=== PATIENT | female | born 1965 | race Caucasian/White ===

== ENCOUNTER → 2018-04-13 | Outpatient (CLI) | payer OTHER ==
[~2018-04-13] MED LIST: ACETAMINOPHEN-1 EAC1 PO; ASPIRIN325 PO; BUTALB-APAP-CA1 EACH PO; CARDIZEM CD180 MG PO; CIPRO500 MG PO; CYMBALTA60 MG PO; FLEXERIL PO; HYDROCODONE-AP1 EAC6 PO; LASIX 20 MG TAB20 MG PO; LEVOTHYROXINE0.05 MG PO; LIPITOR 20 MG T20 M1 PO; MAGIC MOUTHWASH SWISH&SPIT; NORCO 5-325 TA1 EAC1 PO; NORTRIPTYLINE H10 M1 PO; ONDANSETRON HCL4 M2 PO; OXYCONTIN15 MG PO; PHENAZOPYRIDIN200 M2 PO; PLAVIX 75 MG TA75 M1 PO; POTASSIUM20 PO; PREDNISONE 20 M20 M1 PO; PROTONIX40 M1 PO; RANEXA500 MG PO; TOPAMAX50 MG PO; XANAX1 MG PO; XYZAL5 MG PO; ZANAFLEX4 MG PO
== END ==
LOC: M.RAD 16:15
DX: R07.1 Chest pain on breathing (principal)

== ENCOUNTER → 2019-02-01 | Outpatient (CLI) | payer OTHER | LOC: M.RAD 07:12 → M.MRI 07:12 | DX: Z12.31 Encounter for screening mammogram for malignant neoplasm of breast (principal) ==

== ENCOUNTER → 2019-03-13 | Outpatient (CLI) | payer OTHER ==
--- NOTE | 2019-03-20 16:31 | EEG ---
[address] [address] EEG STUDY REPORT Name: GEOFFREY TRUJILLO Room: [facility]#: [id number] Admission: 03/13/19 Attend Phys: Kb Braswell MD Discharge: Date of : 65 Report #: [id number] THIS REPORT FOR: //name// CC: Arsh Rivera DATE OF SERVICE: 03/13/2019 This patient is being evaluated for the possibility of seizure. EEG was done by placing the electrodes by standard 10-20 system of electrode placement. Both referential and sequential montages were used for recording. Background activity in this patient's EEG is about 9 Hz and 30 microvolts. Photic stimulation was unremarkable. The patient became drowsy and that is associated with bilateral slowing and vertex sharp waves. Throughout the record, no active epileptiform activity was noticed. IMPRESSION: This patient's EEG does not demonstrate any clear-cut epileptiform activity. It might be mentioned that the EEG can be normal in a patient with seizure disorder. Therefore, clinical correlation and further workup as clinically indicated can be done. Thank you very much for this referral. <ELECTRONICALLY SIGNED> By: Abhi Queen MD 03/20/19 1631 1408 1425Abhi Queen MD /nt
== END ==
LOC: M.CRD 02-13 13:00 → M.CT 02-13 13:00 → M.CRD 13:41 → M.CT 14:00
DX: R56.9 Unspecified convulsions (principal); F41.9 Anxiety disorder, unspecified; I25.10 Atherosclerotic heart disease of native coronary artery without angina pectoris; F32.9 Major depressive disorder, single episode, unspecified; K21.9 Gastro-esophageal reflux disease without esophagitis; E78.5 Hyperlipidemia, unspecified; E03.9 Hypothyroidism, unspecified; I10 Essential (primary) hypertension

== ENCOUNTER 2019-05-30 19:42 | Emergency (ER) | payer OTHER ==
[~2019-05-30] VITALS: Ht 157.5 cm; Wt 61.2 kg
[2019-05-30 20:28] LABS: ABSOLUTE EOSINOPHILS 0.1 thou/uL (0.0-0.7); ABSOLUTE LYMPHOCYTES 1.6 thou/uL (0.8-5.3); ABSOLUTE MONOCYTES 0.5 thou/uL (0.0-1.2); BASOPHILS 0.2 %; EOSINOPHILS 1.7 %; HEMATOCRIT 33.9 % (37.0-47.0); HEMOGLOBIN 11.4 gm/dL (12.0-15.0); LYMPHOCYTES 25.9 %; MCHC 33.7 g/dL (28.0-37.0); MCV 95.2 fL (80.0-100.0); MONOCYTES 7.7 %; MPV 8.1 fl. (7.2-11.1); NUCLEATED RBCS 0 /100WBC; PLATELET COUNT* 164 thou/uL (150-400); POLYS 64.5 %; RBC 3.56 mil/uL (4.20-5.00); RDW-CV 13.2 % (10.5-14.5); WBC 6.2 thou/uL (4.0-11.0)
[2019-05-30 20:40] LABS: ANION GAP 6 mmol/L (7-16); BUN 8 mg/dL (7-18); CALCIUM 8.5 mg/dL (8.5-10.1); CHLORIDE 105 mmol/L (98-107); CO2 33 mmol/L (21-32); CREATININE 0.9 mg/dL (0.6-1.3); GLUCOSE 85 mg/dL (70-99); POTASSIUM 3.6 mmol/L (3.5-5.1); SODIUM 144 mmol/L (136-145)
[2019-05-30 20:41] LABS: INR 1.1
[2019-05-30 20:50] LABS: ALBUMIN 2.9 g/dL (3.4-5.0); ALKALINE PHOSPHATASE 149 U/L (46-116); LIPASE 87 U/L (73-393); NT-PRO BRAIN NAT PEPTIDE 135 pg/mL (<300); SGOT 28 U/L (15-37); SGPT 27 U/L (30-65); TOTAL BILIRUBIN 0.3 mg/dL (<0.1-1.0); TOTAL PROTEIN 6.6 g/dL (6.4-8.2); TROPONIN-I LEVEL <0.06 ng/mL (<0.06)
[2019-05-30 21:54] LABS: URINE BILIRUBIN NEGATIVE (Negative); URINE BLOOD NEGATIVE (Negative); URINE CLARITY CLEAR; URINE COLOR YELLOW; URINE GLUCOSE-RANDOM NEGATIVE (Negative); URINE KETONES NEGATIVE (Negative); URINE LEUKOCYTES-REFLEX 1+ (Negative); URINE NITRITE-REFLEX NEGATIVE (Negative); URINE PROTEIN NEGATIVE (Negative); URINE UROBILINOGEN 0.2 E.U./dl (0.2-1.0)
[2019-05-30 22:00] LABS: HYALINE CASTS >10 Many /LPF (None Seen)
[2019-05-30 22:01] LABS: AMP/METHAMP Negative (Negative); BARBITURATES Negative (Negative); BENZODIAZEPINES POSITIVE (Negative); COCAINE Negative (Negative); METHADONE Negative (Negative); MUCUS None Seen strn/LPF (None Seen); OPIATES POSITIVE (Negative); PCP Negative (Negative); SQUAMOUS 4-10 Moderate /LPF (0-3); THC Negative (Negative); URINE WBC-REFLEX 6-15 Few /HPF (0-5)
[2019-05-30 22:02] LABS: BACTERIA-REFLEX >30 Many /HPF (None Seen); CRYSTALS None Seen /LPF (None Seen); URINE RBC None Seen /HPF (0-2)
[2019-05-30] MEDS ORDERED: MACROBID 100 M100 M1 PO (23:14)
[2019-05-30 23:23] VITALS: BP 110/61
--- NOTE | 2019-05-31 12:35 | EKG ---
[place] [address] ELECTROCARDIOGRAM REPORT Name: GEOFFREY TRUJILLO [id number] Admission: 05/30/19 Attend Phys: Discharge: 05/30/19 Date of : 65 Report #: [id number] THIS REPORT FOR: //name// [facility] ED Test Date: 2019-05-30 Test Time: 19:59:33 Pat Name: GEOFFREY TRUJILLO Department: Room: Gender: F Multimedia Specialist: OR : 1965 Requested By: Marine Paulino Order Number: [id number] MD: Angel Garcia Measurements Intervals [place] Rate: 73 P: 49 OK: 166 QRS: -10 QRSD: 88 T: 34 QT: 540 QTc: 596 Interpretive Statements Sinus rhythm Borderline T abnormalities, anterior leads Prolonged QT interval Compared to ECG 05/27/2017 14:20:57 Prolonged QT interval now present T-wave abnormality still present Electronically Signed On 05-31-2019 12:35:27 CDT by Angel Garcia [email or web address] <ELECTRONICALLY SIGNED> By: Angel Garcia MD, [facility] 05/31/19 1235 58 58 Angel Garcia MD, FACC /EPI
== END 2019-05-30 23:25 | disposition home or self-care (01) ==
LOC: M.ERS 19:42
PROVIDERS: Emergency Medicine
DX: I95.1 Orthostatic hypotension (principal); N39.0 Urinary tract infection, site not specified; I10 Essential (primary) hypertension; F41.9 Anxiety disorder, unspecified; Z87.891 Personal history of nicotine dependence; Z88.1 Allergy status to other antibiotic agents; Z91.010 Allergy to peanuts; Z88.0 Allergy status to penicillin; Z90.710 Acquired absence of both cervix and uterus; Z90.49 Acquired absence of other specified parts of digestive tract; Z98.890 Other specified postprocedural states

== ENCOUNTER 2021-11-21 20:33 | Inpatient (IN) | payer OTHER ==
[~2021-11-21] VITALS: Ht 157.5 cm; Wt 63.5 kg
--- NOTE | ~2021-11-21 | EEG ---
[address] [address] EEG STUDY REPORT Name: GEOFFREY TRUJILLO Room: [address] IN M.R.#: [id number] Admission: 11/22/21 Attend Phys: Estrella Jha Discharge: Date of : 65 Report #: [id number] THIS REPORT FOR: cc: FAM - No family physician/PCP FAM - No family physician/PCP Abhi Pham MD ~ DATE OF SERVICE: 11/22/2021 This patient is being evaluated for the possibility of seizure. EEG was done by placing the electrodes by standard 10-20 system of electrode placement. Both referential and sequential montages were used to record this EEG. Background activity in this patient's EEG goes about 9 Hz and 30 microvolt and large percentage of this EEG activity is much slower and is associated with some vertex sharp waves and K complexes. Photic stimulation is unremarkable. Throughout the record, no active epileptiform activity was noticed. IMPRESSION: This patient's EEG does not demonstrate any clear-cut epileptiform activity. It is slow and that is a nonspecific finding, which can occur with encephalopathy, effect of psychotropic medication, dementia, etc. Clinical correlation is recommended. By: 1352 1437Parsondra Pham MD /nt
--- NOTE | ~2021-11-21 | CON ---
[address] [address] CONSULTATION Name: GEOFFREY TRUJILLO Room: [address] ADM IN M.R.#: [id number] Admission: 11/22/21 Attend Phys: Estrella Jha Discharge: Date of : 65 Report #: [id number] THIS REPORT FOR: cc: GUILLERMO - No family physician/PCP FAM - No family physician/PCP Abhi Pham MD ~ DATE OF CONSULTATION: 11/22/2021 HISTORY OF PRESENT ILLNESS: This is a 56-year-old female patient who was evaluated by me for the possibility of seizure. The history is very poorly defined. I reviewed all the records and she says that she started having seizures about 1 year ago. She says she sees a neurologist, but she does not know the name. She indicates she is on Vimpat. She is not on Vimpat here, so I do not know what the dosage is she is on. She says she was on 2 other medications before and she does not know the name of those medications, but those medications were stopped because they were ineffective. Her description of the seizure is poor. Sometimes she says she lose the consciousness and sometimes she says she does not. We will try to reach some patient's family to clarify the situation. REVIEW OF SYSTEMS: Indicated that she does have some bradycardia. She has a history of seizure, but does not know what workup has been done and where it has been done. At this time, she was just passed out. I do not know what her baseline is and how far she is from her baseline. Review of systems is also positive for cholecystectomy, hysterectomy, back surgery. She apparently has a pain pump implanted for the chronic back pain. She does take Xanax. She does become anxious. She also takes baclofen. She indicates that she is on disability and that is not because of seizure and that is because of the back pain. This was the relevant 14-point review of system in this patient. PAST MEDICAL HISTORY: Positive for cholecystectomy. FAMILY HISTORY: Unobtainable. SOCIAL HISTORY: She said she is disabled and she does not drink alcohol. PHYSICAL EXAMINATION: NEUROLOGIC: The patient's examination indicates her affect is somewhat different. She talks. She was able to tell me what month it is and what hospital she is in for some time, but I do not know what her baseline is. Cranial nerve examination 2-12 looks mostly unremarkable. She moved all 4 extremities, it took her some time, but she was able to tell me the position sense. Reflexes appear to be present. Plantar is mute. She does not appear to be ataxic. I could not look at the fundus. Her hearing and vision looks adequate. She has no edema, cyanosis or jaundice. She [place] [address] CONSULTATION Name: GEOFFREY TRUJILLO Room: [address] IN ..#: [id number] Admission: 11/22/21 Attend Phys: Estrella Jha Discharge: Date of : 65 Report #: [id number] features. CARDIAC: Unremarkable. No respiratory difficulty was noticed. VITAL SIGNS: Blood pressure is 127/58, respirations 16, pulse is 45, it has gone as low as 38. She does not have any evidence of vascular insufficiency in the lower extremities. IMPRESSION: The history is pretty unusual for the seizure. She apparently has been tried on 3 anticonvulsants and presently is on Vimpat. Because of bradycardia, I do not think Vimpat is a good medication for her because itself can give rise to the blocks and that one of the side effect from that is. I will try to find out from her neurologist what workup was done and what medication she has already been tried. We need to try some alternative medication, but only after confirming that they were epileptic seizure and not nonepileptic event. Bradycardia makes it even more problematic to figure out the diagnosis because she can have seizure secondary to hypoperfusion of the brain, secondary to bradycardia. I discussed all of it with the patient. I reviewed the records and I spent more than 50 minutes of time taking care of this patient today and majority was spent counseling and coordinating. By: 1530 19Abhi Pham MD /galo
[2021-11-21 20:33] VITALS: BP 143/70
[~2021-11-21 20:33] MED LIST changes: +MACROBID 100 M100 M1 PO
[2021-11-21] MEDS ORDERED: DILAUDID1 MG/1 M1 (20:47)
[2021-11-21] MEDS ORDERED: GABLOFEN50 MCG/1 M (20:48)
[2021-11-21] MEDS ORDERED: KETAMINE (20:48)
[2021-11-21] MEDS ORDERED: BUPIVACAIN (20:49)
[2021-11-21] MEDS ORDERED: [UNRECOGNIZED DRUG - OTHER] (20:50)
[2021-11-21 21:23] LABS: ABSOLUTE EOSINOPHILS 0.1 thou/uL (0.0-0.7); ABSOLUTE LYMPHOCYTES 1.4 thou/uL (0.8-5.3); ABSOLUTE MONOCYTES 0.1 thou/uL (0.0-1.2); ABSOLUTE NEUTROPHILS 3.1 thou/uL (1.6-8.1); BASOPHILS 0.3 %; EOSINOPHILS 1.6 %; HEMATOCRIT 38.7 % (37.0-47.0); HEMOGLOBIN 12.6 gm/dL (12.0-15.0); LYMPHOCYTES 29.6 %; MCH 31.8 pg (26.0-34.0); MCHC 32.7 g/dL (28.0-37.0); MCV 97.4 fL (80.0-100.0); MONOCYTES 3.1 %; MPV 8.8 fl. (7.2-11.1); NUCLEATED RBCS 0 /100WBC; PLATELET COUNT* 157 thou/uL (150-400); POLYS 65.4 %; RBC 3.97 mil/uL (4.20-5.00); RDW-CV 15.7 % (10.5-14.5); WBC 4.7 thou/uL (4.0-11.0)
[2021-11-21 21:41] LABS: CALCIUM 9.9 mg/dL (8.5-10.1); CREATININE 0.9 mg/dL (0.6-1.3); POTASSIUM 3.9 mmol/L (3.5-5.1)
[2021-11-21 21:45] LABS: ALBUMIN 3.1 g/dL (3.4-5.0); TOTAL BILIRUBIN 0.3 mg/dL (<0.1-1.0); TOTAL PROTEIN 7.5 g/dL (6.4-8.2)
[2021-11-22] VITALS (7 sets, daily range): BP systolic 100–127; BP diastolic 43–76
[2021-11-22 00:36] LABS: INFLUENZA A ANTIGEN Negative (Negative); INFLUENZA B ANTIGEN Negative (Negative)
[2021-11-22 01:19] LABS: BE 3.9 mmol/L (-2 to +3); PO2 96.6 mmHg (75.0-100.0); pH 7.362 (7.340-7.450)
[2021-11-22 01:21] LABS: PCO2 53.9 mmHg (35.0-45.0)
[2021-11-22 01:26] LABS: URINE BILIRUBIN NEGATIVE (Negative); URINE BLOOD NEGATIVE (Negative); URINE COLOR YELLOW; URINE GLUCOSE-RANDOM NEGATIVE (Negative); URINE KETONES NEGATIVE (Negative); URINE LEUKOCYTES-REFLEX TRACE (Negative); URINE NITRITE-REFLEX NEGATIVE (Negative); URINE PROTEIN NEGATIVE (Negative); URINE SPECIFIC GRAVITY 1.025 (1.005-1.030); URINE UROBILINOGEN 0.2 E.U./dl (0.2-1.0)
[2021-11-22 01:27] LABS: URINE CLARITY SL HAZY
[2021-11-22 02:05] LABS: AMP/METHAMP Negative (Negative); BARBITURATES Negative (Negative); BENZODIAZEPINES POSITIVE (Negative); COCAINE Negative (Negative); METHADONE Negative (Negative); OPIATES POSITIVE (Negative); PCP Negative (Negative); THC Negative (Negative)
[2021-11-22 02:10] LABS: AMORPHOUS URATES Moderate /LPF (None Seen); BACTERIA-REFLEX >30 Many /HPF (None Seen); CASTS None Seen /LPF (None Seen); MUCUS 4-6 Moderate strn/LPF (None Seen); SQUAMOUS 0-3 Few /LPF (0-3); TRANSITIONAL EPITHEL CELL 4-10 Moderate /LPF (None Seen); URINE RBC 3-10 Few /HPF (0-2); URINE WBC-REFLEX 6-15 Few /HPF (0-5); WBC CLUMPS Few (None Seen)
[2021-11-22 09:24] LABS: BE 5.2 mmol/L (-2 to +3); PO2 78.2 mmHg (75.0-100.0); pH 7.357 (7.340-7.450)
[2021-11-22 09:27] LABS: PCO2 58.7 mmHg (35.0-45.0)
--- NOTE | 2021-11-22 10:09 | EKG ---
[place] [address] ELECTROCARDIOGRAM REPORT Name: GEOFFREY TRUJILLO Room: [address] ADM IN M.R.#: [id number] Admission: 11/22/21 Attend Phys: Sin Padilla Discharge: Date of : 65 Date of Service: 11/21/212034 Report #: [id number] THIS REPORT FOR: //name// [facility] ED Test Date: 2021-11-21 Test Time: 20:35:21 Pat Name: GEOFFREY TRUJILLO Department: Room: [address] Gender: F World Designer: : 1965 Requested By: Rashmi Chu Order Number: [id number] MD: Kb Sanchez Measurements Intervals [place] Rate: 46 P: 37 WI: 145 QRS: -9 QRSD: 126 T: 33 QT: 482 QTc: 422 Interpretive Statements Sinus bradycardia Nonspecific intraventricular conduction delay Compared to ECG 05/30/2019 19:59:33 Intraventricular conduction delay now present Sinus rhythm no longer present T-wave abnormality no longer present Prolonged QT interval no longer present Electronically Signed On 11-22-2021 10:09:41 YIELD CLERK by Kb Sanchez [email or web address] <ELECTRONICALLY SIGNED> By: Kb Sanchez MD, FACC 11/22/21 1009 34 34 Kb Sanchez MD, FAC /EPI
--- NOTE | 2021-11-22 10:11 | EKG ---
[place] [address] ELECTROCARDIOGRAM REPORT Name: GEOFFREY TRUJILLO Room: [address] ADM IN M.R.#: [id number] Admission: 11/22/21 Attend Phys: Sin Padilla Discharge: Date of : 65 Date of Service: 11/22/21 0104 Report #: [id number] THIS REPORT FOR: //name// [facility] ED Test Date: 2021-11-22 Test Time: 01:04:46 Pat Name: GEOFFREY TRUJILLO Department: Room: [address] Gender: F Microsoft Architect: : 1965 Requested By: Rashmi Chu Order Number: [id number] MD: Kb Sanchez Measurements Intervals [place] Rate: 41 P: 54 NM: 182 QRS: -3 QRSD: 114 T: 33 QT: 519 QTc: 429 Interpretive Statements Sinus bradycardia Borderline intraventricular conduction delay Compared to ECG 11/21/2021 20:35:21 No significant changes Electronically Signed On 11-22-2021 10:11:20 PLASTIC BLOCK BOILER RELINER by Kb Sanchez [email or web address] <ELECTRONICALLY SIGNED> By: Kb Sanchez MD, [facility] 11/22/21 1011 0104 0104 Kb Sanchez MD, [facility] /EPI
[2021-11-22] MEDS ORDERED: KEPPRA750 MG PO (16:32)
[2021-11-22] MEDS ORDERED: ZONEGRAN100 MG PO (16:33)
[2021-11-22] MEDS ORDERED: VIMPAT150 MG PO (16:35)
[2021-11-22] MEDS ORDERED: OXYCONTIN10 M1 PO (16:35)
[2021-11-22] MEDS ORDERED: ASA81BEC PO (16:39)
[2021-11-22] MEDS ORDERED: XANAX 0.5 MG0.5 M1 PO (16:39)
[2021-11-23] VITALS: BP 128/63; BP 172/71
[2021-11-23 04:00] VITALS: BP 117/64
[2021-11-23 04:21] LABS: HEMATOCRIT 29.4 % (37.0-47.0); MCH 32.4 pg (26.0-34.0); MCHC 33.6 g/dL (28.0-37.0); MCV 96.3 fL (80.0-100.0); MPV 8.8 fl. (7.2-11.1); RBC 3.06 mil/uL (4.20-5.00); RDW-CV 15.7 % (10.5-14.5); WBC 4.2 thou/uL (4.0-11.0)
[2021-11-23 04:45] LABS: ALBUMIN 2.4 g/dL (3.4-5.0); ALKALINE PHOSPHATASE 142 U/L (46-116); ANION GAP 5 mmol/L (7-16); BUN 12 mg/dL (7-18); CALCIUM 8.4 mg/dL (8.5-10.1); CHLORIDE 110 mmol/L (98-107); CHOLESTEROL 81 mg/dL (<200); CO2 32 mmol/L (21-32); CREATININE 0.7 mg/dL (0.6-1.3); GLUCOSE 70 mg/dL (70-99); HDL CHOLESTEROL 55 mg/dL (>40); LDL CHOLESTEROL 18 mg/dL (<100); MAGNESIUM 1.4 mg/dL (1.8-2.4); POTASSIUM 3.5 mmol/L (3.5-5.1); SGOT 28 U/L (15-37); SGPT 35 U/L (30-65); SODIUM 147 mmol/L (136-145); TC:HDL 1.5 Ratio (Not establshd); TOTAL BILIRUBIN 0.2 mg/dL (<0.1-1.0); TOTAL PROTEIN 5.6 g/dL (6.4-8.2); TRIGLYCERIDE 41 mg/dL (<150); VLDL 8 mg/dL (<40)
[2021-11-23 04:48] LABS: SERUM ASSESSMENT CLEAR
[2021-11-23 06:05] LABS: HEMOGLOBIN 9.9 gm/dL (12.0-15.0)
[2021-11-23 07:07] LABS: GLYCOHEMOGLOBIN (HGB A1C) 5.3 % (4.8-5.6)
[2021-11-23 08:01] VITALS: BP 133/65
--- NOTE | 2021-11-23 11:54 | CON ---
[facility] [address] [place] [address] CONSULTATION Name: GEOFFREY TRUJILLO Room: [address] ADM IN M.R.#: [id number] Admission: 11/22/21 Attend Phys: Estrella Jha Discharge: Date of : 65 Report #: [id number] THIS REPORT FOR: cc: GUILLERMO - No family physician/PCP FAM - No family physician/PCP Kb Sanchez MD [facility] ~ cc: Dr. Rodrigeuz DATE OF CONSULTATION: 11/22/2021 CARDIOLOGY CONSULTATION HISTORY OF PRESENT ILLNESS: The patient is a 56-year-old white female who I was asked to see in the hospital today after she was noted to be bradycardic. The history is obtained from the patient. Unfortunately, there are no old records. There are no family members available. The patient is currently somewhat confused. She apparently had a coronary stent placed in [place], [place] in 2008 in her circumflex artery. She had another coronary stent placed in 2009 in her right coronary artery in [employer]. She has done well since that time. She has not had a stress test for years. She is not very active. She notes when she had the stent put in her heart she was having chest pain. Recently, she has had no significant chest pain, shortness of breath, palpitations. She does have a history of seizures that started about a year ago. She sees a neurologist and has been on seizure medications. Her last seizure was about 2 weeks ago. She was brought to the Emergency Room last night by paramedics. Apparently, the is out of town visiting his mother. When he had not heard from his , he called the police who checked on his . When EMS arrived to the home, she was on the ground in the bathroom. She apparently did strike her head. She felt somewhat confused. She was noted to be bradycardic. She was brought to the hospital last night and admitted for further evaluation and treatment. She denies recent vomiting. She has had a cough. No fever, no diarrhea, no bleeding. She denied any palpitations. PAST MEDICAL HISTORY: She had cholecystectomy, hysterectomy, seizure disorder, back surgery. She apparently has a pain pump implanted for chronic back pain. ALLERGIES: SHE HAS A PREVIOUS INTOLERANCE TO BETA BLOCKERS, LISINOPRIL, PENICILLIN. CURRENT MEDICATIONS: Consists of aspirin, Xanax, Lipitor, Lasix, oxycodone, baclofen, ketamine. She is no longer on Plavix. FAMILY HISTORY: Cannot be obtained [place] [address] CONSULTATION Name: GEOFFREY TRUJILLO Room: [address] IN [facility].#: [id number] Admission: 11/22/21 Attend Phys: Estrella Jha Discharge: Date of : 65 Report #: [id number] SOCIAL HISTORY: She is . She and her live here in [place]. They moved here from [employer] in 2014. She does not work outside the home. She quit smoking in 2007. No alcohol abuse. REVIEW OF SYSTEMS: No history of stroke, asthma, liver disease, kidney disease, cancer, psychiatric illness, chronic skin condition. PHYSICAL EXAMINATION: GENERAL: Revealed a middle-aged female, lying in bed. She appeared in no distress. She is very slow moving. HEENT: She was anicteric. Conjunctivae pink. Mucous membranes moist. NECK: Veins do not appear distended. No carotid bruits. CHEST: Clear to auscultation. HEART: Regular rate and rhythm. ABDOMEN: Soft. EXTREMITIES: Had no edema. Dorsalis pedis pulse could be palpated. SKIN: Cool and dry. NEUROLOGIC: She is moving all extremities. She was oriented to place, although she thought this was December. VITAL SIGNS: She had a blood pressure of 110/60, pulse is 50. IMAGING: Her ECG on admission last night showed a sinus bradycardia with septal Q-waves. Her workup last night, she had a portable chest x-ray that showed normal heart size, clear lung snyder. She actually had a CT scan of the head that showed no acute abnormality. She actually had a nuclear stress test done here at [facility] in 2018 done with Lexiscan that showed ejection fraction of 69% with normal perfusion suggesting no significant ischemia. LABORATORY WORK: Last night, creatinine 0.9, alkaline phosphatase is 193, SGPT 45. SGOT 50, albumin 3.1. High sensitivity troponin was 10. Her urine drug screen was positive for benzodiazepines and opiates. Hemoglobin 12.6. Her COVID antigen stat test is negative. Urinalysis is negative for protein, many bacteria, few wbc's. IMPRESSION AND RECOMMENDATIONS: 1. Syncope. The patient was found on the floor. Possible seizure. 2. Bradycardia. If symptomatic, she would require pacemaker. I would check thyroid function studies. 3. Previous stent. No recent angina. I will continue aspirin. 4. History of seizures. The patient on seizure medications. Currently, [address] [address] CONSULTATION Name: GEOFFREY TRUJILLO Room: [address] [facility] IN M.R.#: [id number] Admission: 11/22/21 Attend Phys: Estrella Jha Discharge: Date of : 65 Report #: [id number] followed by Neurology. 5. Previous tobacco abuse. <ELECTRONICALLY SIGNED> By: Kb Sanchez MD, FACC 11/23/21 1154 0812 0856Daaisha Sanchez MD, FACMaru /nt
[2021-11-23 12:00] VITALS: BP 115/50
[2021-11-23 16:00] VITALS: BP 110/59
[2021-11-24] VITALS: BP 133/67
[2021-11-24 03:43] LABS: BE 4.1 mmol/L (-2 to +3); PCO2 48.4 mmHg (35.0-45.0); PO2 84.8 mmHg (75.0-100.0); pH 7.404 (7.340-7.450)
[2021-11-24 04:00] VITALS: BP 134/54
[2021-11-24 04:01] LABS: HEMATOCRIT 31.8 % (37.0-47.0); HEMOGLOBIN 10.7 gm/dL (12.0-15.0); MCH 32.2 pg (26.0-34.0); MCHC 33.6 g/dL (28.0-37.0); MCV 95.7 fL (80.0-100.0); MPV 8.8 fl. (7.2-11.1); RBC 3.32 mil/uL (4.20-5.00); RDW-CV 15.2 % (10.5-14.5); WBC 4.9 thou/uL (4.0-11.0)
[2021-11-24 04:24] LABS: ALBUMIN 2.6 g/dL (3.4-5.0); CALCIUM 8.9 mg/dL (8.5-10.1); CREATININE 0.7 mg/dL (0.6-1.3); MAGNESIUM 1.6 mg/dL (1.8-2.4); POTASSIUM 3.8 mmol/L (3.5-5.1); TOTAL BILIRUBIN 0.2 mg/dL (<0.1-1.0); TOTAL PROTEIN 6.5 g/dL (6.4-8.2)
[2021-11-24 11:16] VITALS: BP 119/57
[2021-11-24 12:29] VITALS: BP 122/49
--- NOTE | 2021-11-24 13:55 | 2DMMODE ---
[place] [address] 2 D/M-MODE ECHOCARDIOGRAM Name: GEOFFREY TRUJILLO Room: 229 ADM IN .[place].#: [id number] Admission: 11/22/21 Attend Phys: Sin Padilla Discharge: Date of : 65 Date of Service: 11/24/21 1355 Report #: [id number] THIS REPORT FOR: cc: GUILLERMO - No family physician/PCP FAM - No family physician/PCP Angel Garcia MD [facility] ~ APPROVED REPORT Study performed: 11/24/2021 09:24:55 EXAM: Comprehensive 2D, Doppler, and color-flow Echocardiogram Patient Location: In-Patient Room #: 229 Status: routine BSA: 1.67 HR: 52 bpm BP: 134/54 mmHg Rhythm: NSR Other Information Study Quality: Good Indications Abnormal ECG 2D Dimensions IVSd: 9.52 (7-11mm) LVOT Diam: 19.27 (18-24mm) LVDd: 52.50 mm PWd: 11.71 (7-11mm) Ascending Ao: 30.46 (22-36mm) LVDs: 33.73 (25-40mm) Aortic Root: 29.03 mm Volumes Left Atrial Volume (Systole) LA ESV Index: 26.90 mL/m2 Aortic Valve AoV Peak Hermes.: 1.32 m/s AO Peak Gr.: 7.01 mmHg LVOT Max P.90 mmHg AO Mean Gr.: 3.67 mmHg LVOT Mean P.58 mmHg LVOT Max V: 0.99 m/s AO V2 VTI: 32.21 cm LVOT Mean V: 0.56 m/s LATANYA (VTI): 2.16 cm2 LVOT V1 VTI: 23.81 cm AI [place]: 1.27 m/s2 [place] [address] 2 D/M-MODE ECHOCARDIOGRAM Name: GEOFFREY TRUJILLO Room: [address] IN .R.#: [id number] Admission: 11/22/21 Attend Phys: Sin Padilla Discharge: Date of : 65 Date of Service: 11/24/21 1355 Report #: [id number] AI PHT: 863.21 ms Mitral Valve E/A Ratio: 1.22 MV Decel. Time: 265.21 ms MV E Max Hermes.: 0.61 m/s MV PHT: 76.91 ms MVA (PHT): 2.86 cm2 TDI E/Lateral E': 5.08 E/Medial E': 5.55 Medial E' Hermes.: 0.11 m/s Lateral E' Hermes.: 0.12 m/s Pulmonary Valve PV Peak Hermes.: 0.96 m/s PV Peak Gr.: 3.67 mmHg Tricuspid Valve RAP Estimate: 5.00 mmHg TR Peak Gr.: 25.90 mmHg RVSP: 31.00 mmHg PA Pressure: 31.00 mmHg Left Ventricle The left ventricle is normal size. There is normal LV segmental wall motion. There is normal left ventricular wall thickness. Left ventricular systolic function is normal. The left ventricular ejection fraction is within the normal range. LVEF is 60%. The left ventricular diastolic function is normal. Right Ventricle The right ventricle is normal size. The right ventricular systolic function is normal. Atria The left atrium size is normal. The right atrium size is normal. Aortic Valve The aortic valve is normal in structure. Trace aortic regurgitation. There is no aortic valvular stenosis. Mitral Valve The mitral valve is normal in structure. Mild mitral regurgitation. No evidence of mitral valve stenosis. [place]ric[place]pid [place] [address] 2 D/M-MODE ECHOCARDIOGRAM Name: GEOFFREY TRUJILLO Room: [address] IN [facility]#: [id number] Admission: 11/22/21 Attend Phys: Sin Padilla Discharge: Date of : 65 Date of Service: 11/24/21 1355 Report #: [id number] The tricuspid valve is normal in structure. Mild tricuspid regurgitation. Pulmonic Valve The pulmonary valve is normal in structure. There is no pulmonic valvular regurgitation. Great Vessels The aortic root is normal in size. IVC is normal in size and collapses >50% with inspiration. Pericardium There is no pericardial effusion. <Conclusion> The left ventricle is normal size. There is normal left ventricular wall thickness. Left ventricular systolic function is normal. The left ventricular ejection fraction is within the normal range. LVEF is 60%. The left ventricular diastolic function is normal. The right ventricle is normal size. The left atrium size is normal. The aortic valve is normal in structure. Trace aortic regurgitation. There is no aortic valvular stenosis. The mitral valve is normal in structure. Mild mitral regurgitation. The tricuspid valve is normal in structure. Mild tricuspid regurgitation. IVC is normal in size and collapses >50% with inspiration. There is no pericardial effusion. There is normal LV segmental wall motion. <ELECTRONICALLY SIGNED> By: Angel Garcia MD, FACC 11/24/21 1355 1355 1355 Angel Garcia MD, FACC /INF
[2021-11-24 17:00] VITALS: BP 118/57
--- NOTE | 2021-11-24 17:04 | CARDNUC ---
[place] [address] CARDIAC NUCLEAR IMAGING REPORT Name: GEOFFREY TRUIJLLO Room: [address] [facility] IN [facility]#: [id number] Admission: 11/22/21 Attend Phys: Sin Padilla Discharge: Date of : 65 Date of Service: 11/24/21 1704 Report #: [id number] THIS REPORT FOR: cc: FAM - No family physician/PCP FAM - No family physician/PCP Miguel Horn MD [facility] ~ APPROVED REPORT Imaging Protocol: Rest Tc-99m/Stress Tc-99m 1 day Study performed: 11/24/2021 09:00:29 Indication: Syncope Patient Location: In-Patient Room #: 229 Stress Tech: christie jackson Stress Nurse: vickey YOUNG Tech:KATELYNN Mortensen Ht: 5 ft 2 in Wt: 140 lbs BSA: 1.64 m2 BMI: 25.60 Medical History Medical History: CAD s/p stent Medications: asa-81, atorvastatin Allergies: Beta Blockers, PCN, Nuts Cardiac Risk Factors: Age Previous Cardiac Procedures: PCI Exercise History: Indeterminate Resting Data Rest SPECT myocardial perfusion imaging was performed in supine position 30 minutes following the intravenous injection of 10.8 mCi of Tc-99m Sestamibi. Time of rest injection: 0740 Date: 11/24/2021 The images were gated to evaluate regional wall motion and calculate left ventricular ejection fraction. Administration Route: IV Administration Site: Left AC Pharmacologic Stress Pharmacologic stress test was performed by injecting Regadenoson 0.4 mg IV push over 10-15 seconds immediately followed by the intravenous injection of 32.1 mCi of Tc-99m Sestamibi. Time of stress injection: 914 Date: 11/24/2021 [place] [address] CARDIAC NUCLEAR IMAGING REPORT Name: GEOFFREY TRUJILLO Room: [address] IN ..#: [id number] Admission: 11/22/21 Attend Phys: Sin Padilla Discharge: Date of : 65 Date of Service: 11/24/21 1704 Report #: [id number] Administration Route: IV Administration Site: Left AC Gated Stress SPECT was performed 40 minutes after stress injection. The images were gated to evaluate regional wall motion and calculate left ventricular ejection fraction. Stress only was performed in the Supine position. Stress Test Details Stress Test: Pharmacologic stress testing performed using 0.4 mg of regadenoson per 5 mL given IV over 10 seconds. Reason for pharmacologic stress test: physical limitation. HR Max Heart Rate (APMHR): 164 bpm Resting HR: 54 bpm Target HR (85% APMHR): 139 bpm Max HR Achieved: 83 bpm % of APMHR: 50 Recovery HR: 60 bpm BP Resting BP: 142/80 mmHg Max BP: 198/81 mmHg Recovery BP: 123/69 mmHg ECG Resting ECG: Sinus Rhythm Stress ECG: Sinus Rhythm ST Change: None Arrhythmia: None Recovery ECG: Sinus Rhythm Recovery ST Change: None Recovery Arrhythmia: None Clinical Reason for Termination: Completed protocol The patient tolerated Lexiscan infusion without significant cardiac symptoms. Stress ECG Conclusion The baseline twelve-lead EKG shows sinus rhythm with flattening of the T waves and slight inversion in the inferior leads. EKGs obtained during and post Lexiscan infusion show sinus rhythm with no significant ST segment or T wave changes when compared to baseline. There were no stress-induced arrhythmias. Study Quality Study: [place] [address] CARDIAC NUCLEAR IMAGING REPORT Name: GEOFFREY TRUJILLO Room: [address] IN [facility].#: [id number] Admission: 11/22/21 Attend Phys: Sin Padilla Discharge: Date of : 65 Date of Service: 11/24/21 1704 Report #: [id number] Artifact: Moderate Diaphragmatic artifact Study Data At rest, the left ventricular ejection fraction was 83%.. Post stress, the left ventricular ejection was 73%.. TID = 0.96. Perfusion Perfusion images obtained at rest and post Lexiscan stress show photopenia in the inferior wall from the base to apex that is more pronounced on resting and stress images. Review of the raw data show significant diaphragmatic attenuation artifact. Gated study showed normal wall motion in this region. Findings consistent with diaphragmatic attenuation artifact. There were no significant defects to suggest ischemia. Wall Motion Normal left ventricular wall motion. Nuclear Conclusion ECG Findings: negative for ischemia Clinical Findings: negative for ischemia Nuclear Findings: negative for ischemia Exercise Capacity: not assessed Left Ventricular Function: normal Risk Study: low Myocardial perfusion imaging findings show no evidence to suggest infarct or ischemia. Left ventricular systolic function appears normal on gated studies. This is a low risk study. <Conclusion> The baseline twelve-lead EKG shows sinus rhythm with flattening of the T waves and slight inversion in the inferior leads. EKGs obtained during and post Lexiscan infusion show sinus rhythm with no significant ST segment or T wave changes when compared to baseline. There were no stress-induced arrhythmias. <ELECTRONICALLY SIGNED> By: Miguel Horn MD, FACC 11/24/21 1704 1704 1704 Miguel Horn MD, FACC /INF
[2021-11-24 20:19] VITALS: BP 133/69
[2021-11-25 00:09] VITALS: BP 102/60
[2021-11-25 04:00] VITALS: BP 105/59
[2021-11-25 08:21] VITALS: BP 113/61
[2021-11-25] MEDS ORDERED: KEPPRA 500 MG500 M1 PO (10:00)
[2021-11-25] MEDS ORDERED: MACROBID 100 M100 MG PO (10:00)
--- NOTE | 2021-11-25 10:02 | EKG ---
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: : 1965 Requested By: Kb Sanchez Order Number: [id number] Britney MD: Miguel Horn Measurements Intervals [place] Rate: 49 P: 56 OR: 161 QRS: 1 QRSD: 126 T: 40 QT: 470 QTc: 425 Interpretive Statements Sinus bradycardia Nonspecific T wave flattening diffusely Compared to ECG 11/22/2021 01:04:46 No significant changes Electronically Signed On 11-25-2021 9:04:34 [employer] by Miguel Horn [email or web address] <ELECTRONICALLY SIGNED> By: Miguel Horn MD, [facility] 11/25/21 0904 1454 1454 Miguel Horn MD, [facility] /EPI
[2021-11-25 11:19] VITALS: BP 113/61
[2021-11-25 12:28] VITALS: BP 100/55
== END 2021-11-25 12:46 | disposition home health service (06) | DRG 308 ==
LOC: M.ERS 20:33 → M.TBA-ER 11-22 01:56 → M.2W 11-22 01:56
PROVIDERS: Internal Medicine; Personal Emergency Response Attendant; ADMIT Internal Medicine; ATTEND Internal Medicine
PROC: 4A10X4Z Monitoring of Central Nervous Electrical Activity, External Approach (ICD-10-PCS; principal; 2021-11-22)
DX: R00.1 Bradycardia, unspecified (principal); G92.8 Other toxic encephalopathy; E87.2 Acidosis; N39.0 Urinary tract infection, site not specified; Z20.822 Contact with and (suspected) exposure to COVID-19; I25.10 Atherosclerotic heart disease of native coronary artery without angina pectoris; Z95.5 Presence of coronary angioplasty implant and graft; G40.909 Epilepsy, unspecified, not intractable, without status epilepticus; E78.5 Hyperlipidemia, unspecified; Z88.8 Allergy status to other drugs, medicaments and biological substances; G89.29 Other chronic pain; F41.9 Anxiety disorder, unspecified; I10 Essential (primary) hypertension; Z88.0 Allergy status to penicillin; Z91.010 Allergy to peanuts